=== PATIENT | male | born 1990 | race American Indian/Alaskan Native ===

== ENCOUNTER 2016-12-07 12:07 | Emergency (ER) | payer SELFPAY ==
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
--- NOTE | 2016-12-07 15:10 | XRay Report ---
Right wrist: Examination performed at no charge to the patient. Used for comparison.
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
[2016-12-07 17:32] VITALS: BP 132/76
== END 2016-12-07 17:33 | disposition home or self-care (01) ==
LOC: ED 12:07
DX: S63.92XA Sprain of unspecified part of left wrist and hand, initial encounter (principal); F17.210 Nicotine dependence, cigarettes, uncomplicated; V29.9XXA Motorcycle rider (driver) (passenger) injured in unspecified traffic accident, initial encounter; Y93.89 Activity, other specified; Y92.89 Other specified places as the place of occurrence of the external cause; Y99.8 Other external cause status
CPT/HCPCS: 99283